=== PATIENT | female | born 1970 | race Two or more races ===

== ENCOUNTER 2020-05-26 08:10 | Outpatient (REF) | payer MEDICAID, SELFPAY ==
--- NOTE | 2020-05-26 08:15 | MM_ITS ---
EXAMINATION: MM BREAST SCREENING DIGITAL BREAST TOMOSYNTHESIS, BILATERAL CLINICAL INFORMATION: Screening. Asymptomatic. The lifetime risk of breast cancer based on the Tyrer-Cuzick Model is 6.6%. COMPARISON: Mammography: 03/26/2019 and studies dating back to 05/21/2013 TECHNIQUE: Digital breast tomosynthesis is performed in both the craniocaudal and mediolateral oblique views along with computer-aided detection (CAD). Synthesized 2D images are generated from the tomosynthesis. Additional cleavage view performed on the left. FINDINGS: There are scattered areas of fibroglandular density (ACR BI-RADS breast composition Category b). There is a stable parenchymal pattern of the left breast with no new abnormal dominant mass or suspicious grouping of microcalcifications. There is a circumscribed density seen within the right breast inferiorly which appears to lie just medial of midline on craniocaudal view. This is in a different location than questioned density worked up in February 2019. Adjacent to this is a small circumscribed density. This lies approximately 6.0 cm from the nipple and appears to be at approximately the 5 o'clock position measuring 8 x 6 mm in size. Spot compression film and ultrasound if necessary is recommended. MM/MM tomosynthesis screening BI IMPRESSION: Question right breast density for further evaluation as described. ASSESSMENT: BI-RADS 0: Incomplete - Need Additional Imaging Evaluation RECOMMENDATION: 1. Additional views of the right breast. 2. Targeted ultrasound if warranted after review of the additional views. 3. Radiology department staff will contact the patient for additional imaging. This patient's information was entered into a reminder system with a target due date for their next mammogram.
== END 2020-05-26 08:11 | disposition home or self-care (01) ==
LOC: HO.MAMMO 08:10
PROVIDERS: PCP Internal Medicine; Visit Provider Internal Medicine
DX: Z12.31 Encounter for screening mammogram for malignant neoplasm of breast (principal)
CPT/HCPCS: 77063; 77067

== ENCOUNTER 2020-06-02 13:41 | Outpatient (REF) | payer MEDICAID, SELFPAY ==
--- NOTE | 2020-06-02 | MM_ITS ---
EXAMINATION: MM DIAGNOSTIC DIGITAL BREAST TOMOSYNTHESIS, RIGHT CLINICAL INFORMATION: Right breast density seen on recent mammogram. COMPARISON: Mammography: 05/26/2020 and studies dating back to 05/21/2013. TECHNIQUE: Digital breast tomosynthesis is performed. 2-D images are generated from the tomosynthesis. The following views are obtained: Spot compression craniocaudal and mediolateral oblique projections. FINDINGS: There are scattered areas of fibroglandular density (ACR BI-RADS breast composition Category b). Additional views show that the density about the inferior medial aspect of the right breast may represent a turn of a vessel or possible adjacent lymph node. Targeted ultrasound evaluation of the right breast demonstrates at the 5 o'clock position, approximately 4 cm from the nipple, what appears to be a mildly complex cyst with increased through sound transmission and no distal sound shadowing containing a dependent calcification. This measures approximately 6 x 3 x 7 mm in size. No suspicious solid mass identified and no shadowing lesion is seen. Recommend 6 month follow up right breast ultrasound. Results are discussed with the patient at time of visit. MM/MM tomosynthesis added views R IMPRESSION: The density about the inferior medial aspect of the right breast appears to correspond to a complex cyst for which 6 month follow up ultrasound is recommended as described. ASSESSMENT: BI-RADS 3: Probably Benign. RECOMMENDATION: Diagnostic right breast ultrasound in 6 months. This patient's information was entered into a reminder system with a target due date for their next mammogram.
--- NOTE | 2020-06-02 | US_ITS ---
EXAMINATION: US DIAGNOSTIC BREAST, RIGHT CLINICAL INFORMATION: Right breast density inferior medial aspect. COMPARISON: Mammography of same day and studies dating back to 05/21/2013. TECHNIQUE: Ultrasound of the breast is performed with real-time mejia scale imaging and color Doppler. FINDINGS: Targeted ultrasound evaluation of the right breast demonstrates at the 5 o'clock position, approximately 4 cm from the nipple, what appears to be a mildly complex cyst with increased through sound transmission and no distal sound shadowing containing a dependent calcification. This measures approximately 6 x 3 x 7 mm in size. No suspicious solid mass identified and no shadowing lesion is seen. Recommend 6 month follow up right breast ultrasound. Results are discussed with the patient at time of visit. US/US breast RT limited IMPRESSION: The density about the inferior medial aspect of the right breast appears to correspond to a complex cyst for which 6 month follow up ultrasound is recommended as described. ASSESSMENT: BI-RADS 3: Probably Benign. RECOMMENDATION: Diagnostic right breast ultrasound in 6 months.
== END 2020-06-02 13:42 | disposition home or self-care (01) ==
LOC: HO.MAMMO 13:41
PROVIDERS: PCP Internal Medicine; Visit Provider Internal Medicine
DX: R92.2 Inconclusive mammogram (principal)
CPT/HCPCS: 76642; 77061; 77065

== ENCOUNTER 2020-12-01 12:50 | Outpatient (REF) | payer MEDICAID, SELFPAY ==
--- NOTE | ~2020-12-01 | MM_ITS ---
EXAMINATION: MM DIAGNOSTIC DIGITAL BREAST TOMOSYNTHESIS, RIGHT US DIAGNOSTIC ULTRASOUND BREAST, RIGHT CLINICAL INFORMATION: Short interval six-month follow-up probable benign complicated cyst lower right breast. COMPARISON: Mammography: 06/02/2020, 05/26/2020 (BI-RADS 0, 03/26/2019, 03/18/2019, 01/09/2018; targeted right breast ultrasound 06/02/2020. TECHNIQUE: Digital breast tomosynthesis is performed in both the craniocaudal and mediolateral oblique views along with computer-aided detection (CAD). Synthesized 2D images are generated from the tomosynthesis. Additional right CC view is provided. Ultrasound right breast is targeted to the lower inner quadrant. Grayscale imaging and color Doppler are performed without and with harmonics. FINDINGS: There are scattered areas of fibroglandular density (ACR BI-RADS breast composition Category b). There is no developing density or interval mass or architectural abnormality. No persistent focal asymmetric density appreciated. No abnormal calcifications. There are punctate densities overlying right axilla corresponding to deodorant artifact on tomography. Ultrasound right breast demonstrates stable small grouped microcysts 5:00 position 4 cm from nipple measuring 7 x 5 x 3 mm. There is no associated color flow. No solid mass or architectural abnormality. Results are provided to the patient at time of visit by the technologist. MM/MM diagnostic mammo unilat RT IMPRESSION: 1. No mammographic evidence of malignancy. 2. Small benign grouped microcysts 5:00 position right breast 7 x 5 x 3 mm. ASSESSMENT: BI-RADS 2: Benign RECOMMENDATION: Routine annual mammography screening, due in 6 months. This patient's information was entered into a reminder system with a target due date for their next mammogram.
== END 2020-12-01 12:51 | disposition home or self-care (01) ==
LOC: HO.MAMMO 12:50
PROVIDERS: Visit Provider Internal Medicine
DX: R92.2 Inconclusive mammogram (principal)
CPT/HCPCS: 76642; 77065

== ENCOUNTER 2021-05-28 09:07 | Outpatient (REF) | payer MEDICAID, SELFPAY ==
--- NOTE | ~2021-05-28 | MM_ITS ---
EXAMINATION: MM SCREENING DIGITAL BREAST TOMOSYNTHESIS, BILATERAL CLINICAL INFORMATION: Screening. Asymptomatic. The lifetime risk of breast cancer based on the Tyrer-Cuzick Model is 6%. COMPARISON: Mammography: 12/01/2020, 06/02/2020, 05/26/2020, 03/26/2019, 03/18/2019; outside exam 01/09/2018 ([facility]); ultrasound right breast 06/02/2020, 12/01/2020 TECHNIQUE: Digital breast tomosynthesis is performed in both the craniocaudal and mediolateral oblique views along with computer-aided detection (CAD). Synthesized 2D images are generated from the tomosynthesis. FINDINGS: There are scattered areas of fibroglandular density (ACR BI-RADS breast composition Category b). Parenchymal pattern is similar to prior studies. There is normal circumscribed nodule consistent with the grouped microcysts 5:00 position right breast under 1 cm. Neither breast shows interval mass or architectural abnormality or abnormal calcifications. The axilla and skin contours are unremarkable. No significant changes. MM/MM tomosynthesis screening BI IMPRESSION: There are no significant changes from prior study. ASSESSMENT: BI-RADS 2: Benign RECOMMENDATION: Routine annual mammography screening. This patient's information was entered into a reminder system with a target due date for their next mammogram.
== END 2021-05-28 09:08 | disposition home or self-care (01) ==
LOC: HO.MAMMO 09:07
PROVIDERS: PCP Internal Medicine; Visit Provider Internal Medicine
DX: Z12.31 Encounter for screening mammogram for malignant neoplasm of breast (principal)
CPT/HCPCS: 77063; 77067

== ENCOUNTER → 2021-07-18 09:44 | Outpatient (BNVA) | payer MEDICAID, SELFPAY | PROVIDERS: PCP Internal Medicine; Referring Provider Internal Medicine; Visit Provider Physician Assistant ==

== ENCOUNTER → 2021-07-25 09:15 | Outpatient (BNVA) | payer MEDICAID, SELFPAY | PROVIDERS: PCP Internal Medicine; Visit Provider Surgery ==

== ENCOUNTER 2021-08-16 09:11 | Outpatient (REF) | payer MEDICAID, SELFPAY ==
--- NOTE | ~2021-08-16 | XR_ITS ---
EXAMINATION: XR CHEST CLINICAL INFORMATION: Morbid obesity COMPARISON: None TECHNIQUE: 2 views of the chest were obtained. FINDINGS: No significant abnormality is noted involving the heart, lungs, mediastinum, bony thorax or soft tissues. XR/XR chest 2V IMPRESSION: No acute disease.
--- NOTE | 2021-08-16 09:26 | ECG_ITS ---
Test Reason : e66.01 Blood Pressure : / mmHG Vent. Rate : 081 BPM Atrial Rate : 081 BPM P-R Int : 140 ms QRS Dur : 084 ms QT Int : 382 ms P-R-T Axes : 038 039 067 degrees QTc Int : 443 ms Normal sinus rhythm Normal ECG No previous ECGs available Referred By: Jose J Clark Electronically Signed By:Farooq Martinez
[2021-08-16 09:47] LABS: MANUAL DIFF FLAG NO
[2021-08-16 09:59] LABS: Basophils Percent Auto 0.3 % (0-2); Eosinophils Absolute Auto 0.1 X10*3/uL (0.0-0.4); Hematocrit 45.4 % (37.0-47.0); Hemoglobin 14.5 g/dl (12.0-16.0); Imm Gran Abs Auto 0.01 X10*3/uL (0.00-0.03); Imm Gran Pct Auto 0.1 % (0.0-0.4); Lymphocytes Absolute Auto 2.5 X10*3/uL (1.2-4.9); Lymphocytes Percent Auto 35.1 % (20-40); Mean Corpuscular HGB Conc 31.9 g/dl (31.0-35.0); Mean Corpuscular Hemoglobin 26.5 pg (27.0-33.0); Mean Platelet Volume 10.6 fL (9.4-12.3); Monocytes Absolute Auto 0.4 X10*3/uL (0.1-1.2); Monocytes Percent Auto 6.2 % (2-11); Neutrophils Absolute Auto 3.9 x10*3/uL (2.0-8.3); Neutrophils Percent Auto 56.3 % (45-73); Platelet Count 383 X10*3/uL (160-400); Red Blood Count 5.47 X10*6/uL (4.20-5.50); Red Cell Distribution Width 13.8 % (11.0-16.0)
[2021-08-16 10:26] LABS: Estimated Average Glucose 128 mg/dL; Hemoglobin A1c % 6.1 %
[2021-08-16 10:29] LABS: Alanine Aminotransferase 23 U/L (0-31); Albumin Level 4.5 g/dL (3.5-5.0); Alkaline Phosphatase 76 U/L (39-117); Anion Gap 12 (12-20); Aspartate Amino Transferase 19 U/L (5-31); Bilirubin Total 0.5 mg/dL (0.0-1.0); Blood Urea Nitrogen 14 mg/dL (9-16); C Reactive Protein 1.34 mg/dL (< or = 0.50); Calcium 9.5 mg/dL (8.4-10.2); Carbon Dioxide 26 mmol/L (22-29); Chloride 108 mmol/L (96-108); Cholesterol 286 mg/dL; Estimated Glomerular Filt Rate > 60; Glucose Random 109 mg/dL (60-115); HDL Cholesterol 44 mg/dL; Iron 116 mcg/dL (30-160); LDL Cholesterol Calculated 216 mg/dl; Percent Iron Saturation 38 % (15-50); Potassium 4.2 mmol/L (3.3-5.1); Sodium 142 mmol/L (135-145); Total Iron Binding Capacity 307 mcg/dL (228-428); Total Protein 7.8 g/dL (6.5-8.0); Triglycerides 132 mg/dL; Unsaturated Iron Binding 191 ug/dL
[2021-08-16 10:56] LABS: Ferritin 94 ng/mL (10-250); Insulin 16 uU/mL (2-29); TSH reflex Free T4 1.48 uIU/mL (0.32-4.0); Vitamin D 25-OH Total 21.7 ng/mL (>30)
[2021-08-16 11:06] LABS: Folate 16.1 ng/mL (> or = 4.0); Vitamin B12 1409 pg/mL (200-900)
[2021-08-16 14:12] LABS: H Pylori Breath Test Positive (Negative)
[2021-08-17 14:46] LABS: Calcium (PTHI) 9.4 mg/dL (8.6-10.2); PTHI 68 pg/mL (14-64)
[2021-08-19 03:22] LABS: Zinc 63 mcg/dL (60-130)
[2021-08-20 08:52] LABS: Vitamin B1 9 nmol/L (8-30)
[2021-08-21 18:16] LABS: Vitamin A 39 mcg/dL (38-98)
== END 2021-08-16 09:12 | disposition home or self-care (01) ==
LOC: HO.LAB 09:11
PROVIDERS: PCP Internal Medicine; Visit Provider Surgery
DX: E66.01 Morbid (severe) obesity due to excess calories (principal); E11.9 Type 2 diabetes mellitus without complications
CPT/HCPCS: 36415; 71046; 80053; 80061; 82306; 82607; 82728; 82746; 83013; 83036; 83525; 83540; 83970; 84425; 84443; 84590; 84630; 85025; 86140; 93005; 99211

== ENCOUNTER → 2021-08-26 07:15 | Outpatient (BNVA) | payer MEDICAID, SELFPAY | PROVIDERS: PCP Internal Medicine; Visit Provider Surgery ==

== ENCOUNTER → 2021-09-09 08:19 | Outpatient (BNVA) | payer MEDICAID, SELFPAY | PROVIDERS: PCP Internal Medicine; Visit Provider Dietitian, Registered | DX: E66.01 Morbid (severe) obesity due to excess calories (principal); E11.9 Type 2 diabetes mellitus without complications | CPT/HCPCS: 97802 ==

== ENCOUNTER 2021-09-20 08:38 | Outpatient (REF) | payer MEDICAID, SELFPAY ==
[2021-09-21 13:56] LABS: H Pylori Breath Test Negative (Negative)
== END 2021-09-20 08:39 | disposition home or self-care (01) ==
LOC: HO.LNP 08:38
PROVIDERS: PCP Internal Medicine; Referring Provider Internal Medicine; Visit Provider Physician Assistant
DX: Z01.818 Encounter for other preprocedural examination (principal)
CPT/HCPCS: 83013; 99211

== ENCOUNTER 2021-09-21 08:44 | Outpatient (REF) | payer MEDICAID, SELFPAY ==
--- NOTE | ~2021-09-21 | FL_ITS ---
EXAMINATION: FL FLUOROSCOPY UPPER GI WITH AIR CLINICAL INFORMATION: Morbid to severe obesity due to excess calories. COMPARISON: None TECHNIQUE: Routine upper GI air-contrast study was performed in the upright and lying positions. FINDINGS: Following oral administration of thick barium and effervescent granules, there is normal propagation of the bolus from the oral cavity, pharynx, esophagus into the stomach without any evidence of obstruction, narrowing or stricture. On placing the patient supine and prone lying, the course, caliber and peristalsis of the stomach, duodenal bulb and sweep are normal. The mucosal pattern of the stomach and duodenum is normal. There is no gastroesophageal reflux or hiatal hernia. FLUOROSCOPY TIME: 1.1 minute DOSE AREA PRODUCT: 33.118 Gy-cm2 FL/FL upper GI w air IMPRESSION: Unremarkable upper GI air-contrast study.
--- NOTE | ~2021-09-21 | US_ITS ---
EXAMINATION: US COMPLETE ABDOMEN WITH LIVER ELASTOGRAPHY CLINICAL INFORMATION: Obesity COMPARISON: None. TECHNIQUE: Real-time imaging of the abdominal viscera. Noninvasive ultrasound liver fibrosis assessment is performed using Alexia ElastPQ point quantification shear wave elastography (2D-SWE) with a C5-2 MHz transducer. Multiple elastography samples are obtained. FINDINGS: PANCREAS: Normal. ABDOMINAL AORTA: The proximal, middle, and distal aortic segments are normal in caliber. INFERIOR VENA CAVA: Visualized portions are normal. LIVER: Liver echotexture is slightly increased. The liver demonstrates normal size and contour. No focal lesion or intrahepatic biliary duct dilatation. The right lobe measures 14 cm in length. The left lobe measures 10.5 cm in length. Portal flow is normal/hepatopedal Shear wave liver elastography median stiffness is 1.2 m/s (reference: normal median stiffness is 1.3 m/s or less). IQR/median stiffness to assess sampling precision is 0.09 (reference: good quality data set is IQR/median stiffness of 0.15 or less). GALLBLADDER: Normal. The gallbladder is physiologically distended without evidence of stones, sludge, polyps, wall thickening or pericholecystic fluid. COMMON BILE DUCT: Normal in caliber measuring 0.2 cm in diameter. RIGHT KIDNEY: There is a 1.4 x 1.2 x 1.3 cm cyst in the lower pole. No hydronephrosis. No renal calculi or focal parenchymal lesions. The kidney measures 11.3 cm in maximum dimension. LEFT KIDNEY: Normal. No hydronephrosis. No renal calculi or focal parenchymal lesions. The kidney measures 12 cm in maximum dimension. SPLEEN: Normal. The spleen measures 10 cm in maximum dimension. FREE FLUID: None. US/US abdomen comp w elastography IMPRESSION: 1. Impression: Slightly echogenic liver probably representing fatty infiltration. Small right renal cyst otherwise unremarkable exam. 2. Liver elastography: Adequate liver sampling. Normal liver stiffness. REFERENCE: Society of Radiologists in Ultrasound Liver Stiffness Thresholds (2020): LIVER STIFFNESS THRESHOLDS: *Liver Stiffness equal or less than 1.3 m/s: High probability of being normal. *Liver Stiffness less than 1.7 m/s: In the absence of other known clinical signs, rules out compensated advanced chronic liver disease. *Liver Stiffness 1.7-2.1 m/s: Suggestive of compensated advanced chronic liver disease but need further test for confirmation. *Liver Stiffness over 2.1 m/s: Rules in compensated advanced chronic liver disease. *Liver Stiffness over 2.4 m/s: Suggestive of clinically significant portal hypertension. QUALITY OF DATA SET: *IQR/Median value equal or less than 0.15 implies a quality data set. *IQR/Median value over 0.15 implies a poor quality data set. SIGNIFICANT CHANGE FROM PRIOR EXAM: Significant change if liver stiffness measurement is 10% or greater from prior exam. OTHER CONSIDERATIONS: The stage of liver fibrosis may be overestimated in the setting of acute hepatitis, liver inflammation, elevated liver function tests, hepatic vascular congestion, obstructive cholestasis, non-fasting state, and infiltrative diseases such as amyloidosis and lymphoma. In some patients with NAFLD, the liver stiffness thresholds for compensated advanced chronic liver disease may be lower. In causes other than viral hepatitis and NAFLD, liver stiffness thresholds are not well established.
== END 2021-09-21 08:45 | disposition home or self-care (01) ==
LOC: HO.US 08:44
PROVIDERS: PCP Internal Medicine; Visit Provider Surgery
DX: E66.01 Morbid (severe) obesity due to excess calories (principal); E11.9 Type 2 diabetes mellitus without complications
CPT/HCPCS: 74246; 76705; 76981

== ENCOUNTER → 2021-09-30 08:15 | Outpatient (BNVA) | payer MEDICAID, SELFPAY | PROVIDERS: PCP Internal Medicine; Visit Provider Surgery ==

== ENCOUNTER → 2021-10-07 08:08 | Outpatient (BNVA) | payer MEDICAID, SELFPAY | PROVIDERS: PCP Internal Medicine; Visit Provider Dietitian, Registered | DX: E66.01 Morbid (severe) obesity due to excess calories (principal) | CPT/HCPCS: 97803 ==

== ENCOUNTER → 2021-10-31 08:15 | Outpatient (BNVA) | payer MEDICAID, SELFPAY | PROVIDERS: PCP Internal Medicine; Visit Provider Surgery | DX: Z13.89 Encounter for screening for other disorder (principal) ==

== ENCOUNTER → 2021-11-08 08:16 | Outpatient (BNVA) | payer MEDICAID, SELFPAY | PROVIDERS: PCP Internal Medicine; Referring Provider Physician Assistant; Visit Provider Dietitian, Registered | DX: Z13.89 Encounter for screening for other disorder (principal) ==

== ENCOUNTER 2022-05-30 08:28 | Outpatient (REF) | payer MEDICAID, SELFPAY ==
--- NOTE | ~2022-05-30 | MM_ITS ---
EXAMINATION: MM SCREENING DIGITAL BREAST TOMOSYNTHESIS, BILATERAL CLINICAL INFORMATION: Screening. Asymptomatic. The lifetime risk of breast cancer based on the Tyrer-Cuzick Model is 6.3%. COMPARISON: Mammography: May 28, 2021 and studies dating back to September 07, 2015 TECHNIQUE: Digital breast tomosynthesis is performed in both the craniocaudal and mediolateral oblique views along with computer-aided detection (CAD). Synthesized 2D images are generated from the tomosynthesis. Additional cleavage view performed. FINDINGS: There are scattered areas of fibroglandular density (ACR BI-RADS breast composition Category b). There are no significant masses, abnormal calcifications, or other abnormalities. Stable circumscribed density seen within the inferior medial aspect of the right breast. MM/MM tomosynthesis screening BI IMPRESSION: No significant changes from prior exam. ASSESSMENT: BI-RADS 1: Negative RECOMMENDATION: Routine annual mammography screening. This patient's information was entered into a reminder system with a target due date for their next mammogram.
== END 2022-05-30 08:29 | disposition home or self-care (01) ==
LOC: HO.MAMMO 08:28
PROVIDERS: PCP Internal Medicine; Visit Provider Internal Medicine
DX: Z12.31 Encounter for screening mammogram for malignant neoplasm of breast (principal)
CPT/HCPCS: 77063; 77067

== ENCOUNTER 2023-06-06 08:08 | Outpatient (REF) | payer MEDICAID, SELFPAY | END 2023-06-06 08:09 | disposition home or self-care (01) | LOC: HO.MAMMO 08:08 | PROVIDERS: PCP Internal Medicine; Visit Provider Internal Medicine | DX: Z12.31 Encounter for screening mammogram for malignant neoplasm of breast (principal) | CPT/HCPCS: 36415; 77063; 77067; 80048; 80061; 80076; 82043; 82570; 83036; 85025 ==

== ENCOUNTER → 2023-06-06 08:45 | Outpatient (BNV) | payer MEDICAID, SELFPAY | PROVIDERS: PCP Internal Medicine; Visit Provider Radiology Diagnostic Radiology | DX: Z12.31 Encounter for screening mammogram for malignant neoplasm of breast (principal) | CPT/HCPCS: 77063; 77067 ==

== ENCOUNTER 2023-06-06 08:56 | Outpatient (REF) | payer MEDICAID, SELFPAY ==
[2023-06-06 11:09] LABS: MANUAL DIFF FLAG NO
[2023-06-06 11:34] LABS: Basophils Percent Auto 0.2 % (0-2); Eosinophils Absolute Auto 0.1 X10*3/uL (0.0-0.4); Eosinophils Percent Auto 1.3 % (0-4); Hematocrit 45.7 % (37.0-47.0); Hemoglobin 14.5 g/dl (12.0-16.0); Imm Gran Abs Auto 0.02 X10*3/uL (0.00-0.03); Imm Gran Pct Auto 0.3 % (0.0-0.4); Lymphocytes Absolute Auto 1.8 X10*3/uL (1.2-4.9); Lymphocytes Percent Auto 30.6 % (20-40); Mean Corpuscular HGB Conc 31.7 g/dl (31.0-35.0); Mean Corpuscular Hemoglobin 26.1 pg (27.0-33.0); Mean Corpuscular Volume 82.3 fL (80.0-98.0); Mean Platelet Volume 11.1 fL (9.4-12.3); Monocytes Absolute Auto 0.5 X10*3/uL (0.1-1.2); Monocytes Percent Auto 7.5 % (2-11); Neutrophils Absolute Auto 3.6 x10*3/uL (2.0-8.3); Neutrophils Percent Auto 60.1 % (45-73); Platelet Count 316 X10*3/uL (160-400); Red Blood Count 5.55 X10*6/uL (4.20-5.50); Red Cell Distribution Width 13.9 % (11.0-16.0)
[2023-06-06 11:42] LABS: Estimated Average Glucose 126 mg/dL
[2023-06-06 11:51] LABS: Alanine Aminotransferase 37 U/L (0-31); Albumin Level 4.2 g/dL (3.5-5.0); Alkaline Phosphatase 69 U/L (39-117); Anion Gap 13 (12-20); Aspartate Amino Transferase 29 U/L (5-31); Bilirubin Direct 0.1 mg/dL (0.0-0.5); Bilirubin Total 0.3 mg/dL (0.0-1.0); Blood Urea Nitrogen 8 mg/dL (9-16); Calcium 8.8 mg/dL (8.4-10.2); Carbon Dioxide 23 mmol/L (22-29); Chloride 107 mmol/L (96-108); Cholesterol 242 mg/dL (<200); Estimated Glomerular Filt Rate > 60; Glucose Random 98 mg/dL (60-115); HDL Cholesterol 52 mg/dL (>40); LDL Cholesterol Calculated 156 mg/dL (<100); Potassium 3.9 mmol/L (3.3-5.1); Sodium 139 mmol/L (135-145); Total Protein 7.5 g/dL (6.5-8.0); Triglycerides 174 mg/dL (<150)
[2023-06-06 12:07] LABS: Creatinine Urine 178.67 mg/dL; Microalbum/Creatinine Ratio Ur 6.1 ug/mg cr (<30)
== END 2023-06-06 08:57 | disposition home or self-care (01) ==
LOC: HO.HHCL 08:56
PROVIDERS: Visit Provider Internal Medicine
DX: E11.9 Type 2 diabetes mellitus without complications (principal)
CPT/HCPCS: 36415; 80048; 80061; 80076; 82043; 82570; 83036; 85025

== ENCOUNTER 2023-07-24 11:33 | Outpatient (REF) | payer MEDICAID, SELFPAY ==
[2023-07-27 23:34] LABS: C. trachomatis RNA TMA NOT DETECTED (NOT DETECTED); N. gonorrhoeae RNA TMA NOT DETECTED (NOT DETECTED)
[2023-07-28 03:14] LABS: HPV mRNA E6/E7 rflx Not Detected (Not Detected)
== END 2023-07-24 11:34 | disposition home or self-care (01) ==
LOC: HO.HHCLNP 11:33
PROVIDERS: Visit Provider Internal Medicine
DX: Z12.4 Encounter for screening for malignant neoplasm of cervix (principal); Z11.51 Encounter for screening for human papillomavirus (HPV)
CPT/HCPCS: 36415; 87491; 87591; 87624; 88142

== ENCOUNTER 2024-06-12 10:16 | Outpatient (REF) | payer MEDICAID, SELFPAY ==
--- NOTE | ~2024-06-12 | MM_ITS ---
EXAMINATION: MM SCREENING DIGITAL BREAST TOMOSYNTHESIS, BILATERAL CLINICAL INFORMATION: Screening. Asymptomatic. COMPARISON: Mammography: Comparison is made with available priors TECHNIQUE: Digital breast mammography with tomosynthesis is performed in both the craniocaudal and mediolateral oblique views along with computer-aided detection (CAD). FINDINGS: There are scattered areas of fibroglandular density (ACR BI-RADS breast composition Category b). There are no significant masses, abnormal calcifications, or other abnormalities. MM/MM tomosynthesis screening BI IMPRESSION: No mammographic evidence of malignancy. ASSESSMENT: BI-RADS BI-RADS 1 - Negative RECOMMENDATION: Routine annual mammography screening. 1 year F/U This examination should not preclude the clinical evaluation of a suspicious palpable abnormality. This patient's information was entered into a reminder system with a target due date for their next mammogram. Electronically signed by: Rupal Cloud DO 06/20/2024 10:45 AM LELAND
== END 2024-06-12 10:17 | disposition home or self-care (01) ==
LOC: HO.MAMMO 10:16
PROVIDERS: PCP Internal Medicine; Visit Provider Internal Medicine
DX: Z12.31 Encounter for screening mammogram for malignant neoplasm of breast (principal)
CPT/HCPCS: 77063; 77067

== ENCOUNTER → 2024-06-12 11:15 | Outpatient (BNV) | payer MEDICAID, SELFPAY | PROVIDERS: PCP Internal Medicine; Visit Provider Internal Medicine | DX: Z12.31 Encounter for screening mammogram for malignant neoplasm of breast (principal) | CPT/HCPCS: 77063; 77067 ==

== ENCOUNTER 2024-07-07 10:08 | Outpatient (REF) | payer MEDICAID, SELFPAY ==
[2024-07-07 12:09] LABS: Alanine Aminotransferase 47 U/L (0-31); Albumin Level 4.2 g/dL (3.5-5.0); Alkaline Phosphatase 91 U/L (39-117); Anion Gap 10 (12-20); Aspartate Amino Transferase 36 U/L (5-31); Bilirubin Total 0.3 mg/dL (0.0-1.0); Blood Urea Nitrogen 12 mg/dL (9-16); Calcium 9.2 mg/dL (8.4-10.2); Carbon Dioxide 26 mmol/L (22-29); Chloride 107 mmol/L (96-108); Cholesterol 259 mg/dL (<200); Estimated Glomerular Filt Rate > 60; Glucose Random 121 mg/dL (60-115); HDL Cholesterol 44 mg/dL (>40); LDL Cholesterol Calculated 174 mg/dL (<100); Potassium 3.9 mmol/L (3.3-5.1); Sodium 139 mmol/L (135-145); Total Protein 7.7 g/dL (6.5-8.0); Triglycerides 206 mg/dL (<150)
[2024-07-07 14:34] LABS: Creatinine Urine 141.45 mg/dL
== END 2024-07-07 10:09 | disposition home or self-care (01) ==
LOC: HO.HHCL 10:08
PROVIDERS: Visit Provider Internal Medicine
DX: E11.9 Type 2 diabetes mellitus without complications (principal)
CPT/HCPCS: 36415; 80053; 80061; 82043; 82570

== ENCOUNTER 2025-06-23 09:46 | Outpatient (REF) | payer OTHER, SELFPAY ==
--- NOTE | ~2025-06-23 | MM_ITS ---
EXAMINATION: MM SCREENING DIGITAL BREAST TOMOSYNTHESIS, BILATERAL CLINICAL INFORMATION: Screening. Asymptomatic. COMPARISON: Comparison made to multiple prior, most recent June 12, 2024, and most remote January 09, 2018. TECHNIQUE: Digital breast tomosynthesis is performed in mediolateral oblique and craniocaudal views along with computer-aided detection (CAD). Synthesized 2D images are generated from the tomosynthesis. FINDINGS: BREAST COMPOSITION: There are scattered areas of fibroglandular density. BILATERAL BREASTS: No significant masses, suspicious calcifications or other abnormalities are seen in either breast. MM/MM tomosynthesis screening BI IMPRESSION: BILATERAL BREASTS: Negative, no mammographic evidence of malignancy. Normal interval follow-up is recommended in 12 months. ASSESSMENT: BI-RADS: Category 1: Negative RECOMMENDATION: Routine annual mammography screening. FOLLOW-UP: 1 year F/U This examination should not preclude the clinical evaluation of a suspicious palpable abnormality. This patient's information was entered into a reminder system with a target due date for their next mammogram. Electronically signed by: Michelle Goncalves MD 06/23/2025 07:37 PM [facility]
--- OUTSIDE RECORDS SUMMARY | 2025-06-23 11:27 | XMS_ITS | Clinical Summary ---
Author Organization [address] [facility] Address [address] [place] [address] Phone Care Team Providers Care Plate Stacker Name Role Phone Darcy Mendoza MD Primary Care Provide r Allergies Active Allergy Reactions Criticality Noted Date Comments Aspirin 08/11/2022 Medications acetaminophen (TYLENOL) 500 mg tablet Take 1 tablet (500 mg total) by mouth every 6 (six) hours if needed. 5 Active atorvastatin (LIPITOR) 10 mg tablet Take 1 tablet (10 mg total) by mouth at bedtime. 5 Active cyclobenzaprine (FLEXERIL) 10 mg tablet Take 1 tablet (10 mg total) by mouth at bedtime. 5 Active diclofenac (VOLTAREN) 1 % topical gel 2 (two) times a day. 5 Active docusate sodium (COLACE) 100 mg capsule Take 1 capsule (100 mg total) by mouth 2 (two) times a day. 5 Active ibuprofen (ADVIL,MOTRIN) 400 mg tablet TOME HERVE-DOS TABLETA POR V A ORAL PROSPER VECES AL D A CUANDO SEA NECESARIO PARA EL DOLOR 5 Active metFORMIN (FORTAMET) 500 mg 24 hr tablet Take 1 tablet (500 mg total) by mouth 2 (two) times a day with meals. 3 Active tirzepatide, weight loss, (Zepbound) 15 mg/0.5 mL injection Inject 0.5 mL (15 mg total) under the skin every 7 (seven) days. Active cholecalciferol (VITAMIN D-3) 50 mcg (2,000 unit) tablet Take 1 tablet (2,000 Units total) by mouth 1 (one) time each day. Active hydroquinone (KETAN) 4 % cream Apply topically 2 (two) times a day. Active ketotifen fumarate (ZADITOR) 0.035 % ophthalmic solution 1 drop 2 (two) times a day. Active polyethylene glycol (Golytely) 236-22.74-6.74 -5.86 gram solution Take 4L by mouth once for one dose. May substitue any PEG. Starting at 2PM the day before your procedure drink 1 8oz glasses at your own pace until you complete half of the gallon. Finish 2nd half of the gallon at 8PM. 4000 mL 5 Active bisacodyL (DULCOLAX) 5 mg EC tablet Take 2 tablets by mouth right before beginning bowel prep. See instructions provided by the office 2 tablet 5 Active Encounters Date Type Department Care Team Description 04/13/2025 2:00 PM EDT Office Visit Bariatric Surgery - [address] [place] [address] Leeann Damon PA Class 3 severe obesity due to excess calories with serious comorbidity and body mass index (BMI) of 45.0 to 49.9 in adult (CMS/HCC V24, CMS/HCC V28) (Primary Dx); Type 2 diabetes mellitus without complication, unspecified whether residential insulin use (CMS/HCC V24, CMS/HCC V28); Colon cancer screening 04/09/2025 Telephone Gastroenterology [address] [place] [address] Merlene Johnson MD 04/08/2025 Telephone Gastroenterology [address] [place] [address] Merlene Johnson MD from Last 3 Months Social History Tobacco Use Types Packs/Day Years Used Date Smoking Tobacco: Never Assessed Comments Unknown Sex and Gender Information Value Date Recorded Sex Assigned at Not on file Legal Sex Female 11:04 AM EDT Gender Identity Not on file Sexual Orientation Not on file Last Filed Vital Signs Vital Sign Reading Time Taken Comments Blood Pressure 113/75 04/13/2025 1:51 PM EDT Pulse 89 04/13/2025 1:51 PM EDT Temperature 36.7 C (98.1 F) 06/18/2024 1:33 PM EST Respiratory Rate - - Oxygen Saturation - - Inhaled Oxygen Concentration - - Weight 112 kg (246 lb 3.2 oz) 04/13/2025 1:51 PM EDT Height 157.5 cm (5' 2 ) 04/13/2025 1:51 PM EDT Body Mass Index 45.03 04/13/2025 1:51 PM EDT Plan of Treatment Upcoming Encounters Date Type Department Care Team (Late st Contact Info) Description 07/06/2025 12:30 PM EST Appointment [facility] [address] [place] [id number] Abdirahman Guerrero DO [address] [facility] [address] [place] [address] Health Maintenance Due Date Last Done Comments Breast Cancer Screening 1971 Colorectal Cancer Screening: Colonoscopy 1971 Diabetes: Annual Foot Exam 11/01/1981 Diabetes: Annual Retina Eye Exam 11/01/1981 Hepatitis B Vaccines (1 of 3 - 19+ 3-dose series) 11/01/1990 Pneumococcal Vaccine: 50+ Years (1 of 2 - PCV) 11/01/1990 RSV Immunization Adult Patients (1 - Risk 50-74 years 1-dose series) 11/01/2021 HIV Screening 02/29/2024 Hepatitis C Screening 02/29/2024 Social Influencers of Health Screening 02/29/2024 Diabetes: Annual Urine Albumin-Creatinine Ratio (uACR) 06/18/2024 Depression Screening 07/30/2024 COVID-19 Vaccine (4 - 2024-2 6 season) 2025 06/28/2021, 12/17/2020, 10/12/2020 Influenza Vaccine (#1) 2025 2, 06/09/2021, 09/15/2020 Diabetes: Annual GFR (Glomerular Filtration Rate) 07/07/2025 07/07/2024 Diabetes: Blood Sugar Contro l Test (HGBA1C) 09/30/2025 04/02/2025, 06/06/2024 Cervical Cancer Screening: P ap Smear 07/25/2026 07/25/2023 Cholesterol Screening (Lipid Panel) 07/07/2029 07/07/2024, 06/06/2023 DTaP,Tdap,and Td Vaccines (2 - Td or Tdap) 06/01/2032 06/01/2022 Zoster Vaccines Completed 10/06/2022, 08/04/2022 HIB Vaccines Aged Out No longer eligi ble based on patient's age to complete this topic HPV Vaccines Aged Out No longer eligi ble based on patient's age to complete this topic Hepatitis A Vaccines Aged Out No long er eligible based on patient's age to complete this topic IPV Vaccines Aged Out No longer eligi ble based on patient's age to complete this topic MMR Vaccines Aged Out No longer eligi ble based on patient's age to complete this topic Meningococcal ACWY Vaccine Aged Out N o longer eligible based on patient's age to complete this topic Meningococcal B Vaccine Aged Out No l onger eligible based on patient's age to complete this topic RSV Immunization Patients Under 20 months Aged Out No longer eligible b ased on patient's age to complete this topic Varicella Vaccines Aged Out No longer eligible based on patient's age to complete this topic Goals Goal Patient Goal Type Associated Problems Recent Progress Patient-Stated? Author Autogenera tatiana Goal Care Plan Autogenerated Problem No SoheilaCorinne Additional Health Concerns Active Problems Noted Date Diagnosed Date Autogenerated Problem 05/20/[address] [place] [address] [place] [address] [employer] Care Teams Plate Stacker Relationship Specialty Start Date End Date Darcy Mendoza MD [address] [phone] PCP - General Internal Medicine 06/18/24
--- OUTSIDE RECORDS SUMMARY | 2025-06-23 11:27 | XMS_ITS | Encounter Summary ---
Author Organization [employer] Address [address] [facility] 7 [place] [address] Care Team Providers Care Natural Gas Engineer Name Role Phone Darcy Mendoza MD Primary Care Provide r Reason for Visit * Reason Onset Date Comments Med Refill 02/23/2025 Encounter Details Date Type Department Care Team ([facility] Contact Info) Description 02/23/2025 Telephone [facility] [address] [place], [place] [phone] Darcy Mendoza MD [address] [place] [address] Med Refill Social History Tobacco Use Types Packs/Day Years Used Date Smoking Tobacco: Never Passive Smoke Exposure: Never Smokeless Tobacco: Never Alcohol Use Standard Drinks/Week Comments Never 0 (1 standard drink = 0.6 oz pur e alcohol) Depression Answer Date Recorded Patient Health Questionnaire-9 Score 0 01/23/2025 Patient Health Questionnaire-9 Score 0 01/23/2025 Last PHQ-9: Questionnaire Data Not on file 0 01/23/2025 Housing Stability Answer Date Recorded What is your housing situation today? I have simon carmichael 01/23/[address] you li ve. Do you have problems with any of the following? None of the above 01/23/2025 Food Insecurity Answer Date Recorded Within the past 12 months, y ou worried that your food would run out before you got money to buy more: Never True 01/23/2025 Within the past 12 months,th e food you bought just didn't last and you didn't have enough money to get more: Never True Transportation Answer Date Recorded In the past 12 months, has l ack of transportation kept you from medical appts, meetings, work or from getting things needed for daily living? No 01/23/2025 Utilities Answer Date Recorded In the past 12 months, has t he electric, gas, oil or water company threatened to shut off services in your home? No 01/23/2025 Depression Answer Date Recorded Patient Health Questionnaire-2 Score 0 01/23/2025 Internet Access Answer Date Recorded Internet Access Q1 Yes 01/23/2025 Internet Access Q2 Not on file 01/23/2025 Comments Unknown Sex and Gender Information Value Date Recorded Sex Assigned at Female 05/29/2022 10:34 AM EDT Legal Sex Female 10:34 AM EDT Gender Identity Female 05/29/2022 10:34 AM EDT Sexual Orientation Choose not to disclose 2021 10:34 AM EDT documented as of this encounter Miscellaneous Notes * Telephone Encounter - Karoline Walker LPN - 02/23/2025 4:06 PM EDT Medication was sent to [facility] #[id number] on 01/21/25 with 1 refill. * Telephone Encounter - Jayme Torres - 02/23/2025 4:03 PM EDT TC from pt requesting medication refill. Medications needing refill : Tirzepatide-Weight Management (Zepbound) 12.5 MG/0.5ML solution auto-injector To be sent to: [facility]/pharmacy #[id number] - [address] documented in this encounter Plan of Treatment Upcoming Encounters Date Type Department Care Team ([facility] st Contact Info) Description 07/09/2025 1:00 PM EST Office Visit [facility] [address] [place] [address] Darcy Mendoza MD [address] [place], [place] [phone] documented as of this encounter Visit Diagnoses Not on filedocumented in this encounter Additional Health Concerns Assessment Noted Time PHQ-9 Depression Total Score: 0 01/24/20 25 1:26 PM EDT documented as of this encounter Care Teams Natural Gas Engineer Relationship Specialty Start Date End Date Darcy Mendoza MD [address] [place] [address] PCP - General Family Medicine 07/16/18 documented as of this encounter
--- OUTSIDE RECORDS SUMMARY | 2025-06-23 11:27 | XMS_ITS | Encounter Summary ---
Author Organization [employer] Address [address] [place] [address] Care Team Providers Care Class C Driver Name Role Phone Darcy Mendoza MD Primary Care Provide r Encounter Details Date Type Department Care Team ([facility] st Contact Info) Description 11/27/2024 Orders Only [facility] [address] [place] [address] ProviderChan MD Social History Tobacco Use Types Packs/Day Years Used Date Smoking Tobacco: Never Passive Smoke Exposure: Never Smokeless Tobacco: Never Alcohol Use Standard Drinks/Week Comments Never 0 (1 standard drink = 0.6 oz pur e alcohol) Depression Answer Date Recorded Patient Health Questionnaire-9 Score 0 08/28/2023 Patient Health Questionnaire-9 Score 0 08/28/2023 Last PHQ-9: Questionnaire Data Not on file 0 08/28/2023 Housing Stability Answer Date Recorded What is your housing situation today? I have simonteodora carmichael 08/28/[address] you li ve. Do you have problems with any of the following? None of the above 08/28/2023 Food Insecurity Answer Date Recorded Within the past 12 months, y ou worried that your food would run out before you got money to buy more: Never True 08/28/2023 Within the past 12 months,th e food you bought just didn't last and you didn't have enough money to get more: Never True Transportation Answer Date Recorded In the past 12 months, has l ack of transportation kept you from medical appts, meetings, work or from getting things needed for daily living? No 08/28/2023 Utilities Answer Date Recorded In the past 12 months, has t he electric, gas, oil or water company threatened to shut off services in your home? No 08/28/2023 Depression Answer Date Recorded Patient Health Questionnaire-2 Score 0 08/28/2023 Comments Unknown Sex and Gender Information Value Date Recorded Sex Assigned at Female 05/29/2022 10:34 AM EDT Legal Sex Female 10:34 AM EDT Gender Identity Female 05/29/2022 10:34 AM EDT Sexual Orientation Choose not to disclose 2021 10:34 AM EDT documented as of this encounter Plan of Treatment Upcoming Encounters Date Type Department Care Team (Late st Contact Info) Description 07/09/2025 1:00 PM EST Office Visit [facility] [address] [place], [place] [phone] Darcy Mendoza MD [address] [place], [place] [phone] documented as of this encounter Procedures Procedure Name Priority Date/Time Associated Diagnosis Comments HM COLONOSCOPY Routine 09/05/2019 4:17 PM EST documented in this encounter Results * Hm Colonoscopy (09/05/2019 4:17 PM EST) Colonoscopy Normal Normal Narrative Jazz Penaloza - 09/05/2019 4:17 PM EST See legacy note from 09/05/2019 us Historical Provider HEALTH MAINTENANCE Edited Result - Final documented in this encounter Visit Diagnoses Not on filedocumented in this encounter Additional Health Concerns Assessment Noted Time PHQ-9 Depression Total Score: 0 08/28/19 24 2:59 PM EST documented as of this encounter Care Teams Class C Driver Relationship Specialty Start Date End Date Darcy Mendoza MD [address] [place], [place] [phone] PCP - General Family Medicine 07/16/18 documented as of this encounter
--- OUTSIDE RECORDS SUMMARY | 2025-06-23 11:27 | XMS_ITS | Clinical Summary ---
Author Organization [employer] Address [address] [facility] [address] [place] [address] Care Team Providers Care Senior Designer/Art Director Name Role Phone Darcy Mendoza MD Primary Care Provide r Allergies Active Allergy Reactions Criticality Noted Date Comments Aspirin 08/11/2022 Medications cholecalciferol (Vitamin D-3) 50 MCG (1999 UT) tablet Take by mouth. 2 Active glucose blood (FREESTYLE LITE) test strip every 12 (twelve) hours. 2 Active hydroquinone 4 % cream Apply topically every 12 (twelve) hours. 1 Active ketotifen (Zaditor) 0.025 % ophthalmic solution Administer 1 drop into affected eye(s) in the morning and 1 drop in the evening. 1 Active zoster vaccine-recombin ant adjuvanted (Shingrix) 50 MCG/0.5ML vaccine Inject 0.5 mL into the shoulder, thigh, or buttocks. 2 Active FreeStyle lancetsIndicatio ns:Type 2 diabetes mellitus without complication, unspecified whether termite helper insulin use USE 1 LANCET BY TO SKIN ROUTE 2 TIMES EVERY DAY 100 each 1 3 Active UltiCare Alcohol Swabs 70 % padsIndications: Type 2 diabetes mellitus without complication, unspecified whether termite helper insulin use APPLY 1 PAD BY TO SKIN ROUTE 2 TIMES EVERY DAY 100 each 3 Active metFORMIN, OSM, (Fortamet) 500 MG 24 hr tabletIndication s:Type 2 diabetes mellitus without complication, without long-term current use of insulin (HCC) Take 1 tablet (500 mg) by mouth with evening meal. Do not crush, chew, or split. 30 tablet 11 3 Active metFORMIN (Glucophage) 500 MG tabletIndication s:Newly diagnosed diabetes (HCC) Take 1 tablet (500 mg) by mouth with breakfast and with evening meal. 60 tablet 11 4 Active Lancets miscIndications: Newly diagnosed diabetes ([facility]) Use to test blood sugar 2 times daily 100 each 4 Active Blood Glucose Monitoring Suppl (FreeStyle Ridge Lite) w/Device kitIndications:N ewly diagnosed diabetes ([facility]) Use to test blood sugar 2 times daily 1 kit 4 Active UltiCare Alcohol Swabs 70 % padsIndications: Newly diagnosed diabetes ([facility]) USE TO TEST BLOOD SUGAR 2 TIMES DAILY 100 each 5 4 Active Tirzepatide-Weig ht Management (Zepbound) 10 MG/0.5ML solution auto-injectorInd ications:Class 3 severe obesity due to excess calories with serious comorbidity and body mass index (BMI) of 50.0 to 59.9 in adult ([facility]) Inject 0.5 mL (10 mg) under the skin 1 (one) time per week. 2 mL 5 Active cyclobenzaprine (Flexeril) 10 MG tablet Take 1 tablet (10 mg) by mouth at bedtime for 10 days. 10 tablet 5 Active Diclofenac Sodium 1 % gel APPLY 1 INCH TOPICALLY IF NEEDED IN THE MORNING AND AT BEDTIME FOR PAIN 100 g 5 Active Acetaminophen Extra Strength 500 MG tablet TAKE 1 TABLET (500 MG) BY MOUTH EVERY 6 (SIX) HOURS IF NEEDED FOR MILD PAIN. 120 tablet 5 Active Tirzepatide-Weig ht Management (Zepbound) 15 MG/0.5ML solutionIndicati ons:Class 3 severe obesity due to excess calories with serious comorbidity in adult ([facility]) Inject 15 mg under the skin 1 (one) time per week. 2 mL 3 5 Active atorvastatin (Lipitor) 10 MG tabletIndication s:Dyslipidemia Take 1 tablet (10 mg) by mouth Once per day. 30 tablet 11 5 026 Active docusate sodium (Colace) 100 MG capsuleIndicatio ns:Other constipation TAKE 1 CAPSULE BY MOUTH IN THE MORNING AND AT BEDTIME NEEDED FOR CONSTIPATION 180 capsule 5 Active ibuprofen 400 MG tablet TOME HERVE-DOS TABLETA POR VIA ORAL PROSPER VECES AL AARON CUANDO SEA NECESARIO PARA EL DOLOR 90 tablet 5 Active Active Problems Problem Noted Date Diagnosed Date Chronic left shoulder pain 04/02/2025 Assessment & Plan (04/02/2025 6:51 PM EDT): I will order an x-ray of the shoulder and contact the patient with results and plan Colon cancer screening 04/02/2025 Dyslipidemia 04/02/2025 Assessment & Plan (04/02/2025 6:49 PM EDT): Extensive counseling about healthy diet and exercise done today Her ASCVD 10-year risk score is 5.8, I decided to start her on atorvastatin 10 mg daily, monitor her LFTs in 3 months Tendinosis of left rotator cuff 02/26/2025 Assessment & Plan (02/26/2025 2:54 PM EDT): Advised to apply heat to affected area and diclofenac gel twice daily x 1 to 2 weeks Continue ibuprofen up to 800 mg 2-3 times per day as needed (history of ASA allergy but currently tolerates ibuprofen well) + Tylenol and Flexeril nightly x 1 to 2 weeks We discussed about stretching exercises for her shoulders, she can call back if symptoms do not improve within 3 weeks, may need referral to PT Other constipation 09/08/2024 Assessment & Plan (09/08/2024 4:43 PM EST): I advised to drink more water and include fiber in her diet I prescribed for patient Colace and MiraLAX Bilateral foot pain 06/06/2024 Elevated blood pressure reading 06/06/2024 Assessment & Plan (06/06/2024 11:31 AM EST): I advise low Na diet and weight reduction RTC 5 weeks Type 2 diabetes mellitus wit hout complication, without long-term current use of insulin 06/06/2024 Assessment & Plan (04/02/2025 6:51 PM EDT): Diabetes is: controlled - Lab Results Component Value Date HGBA1C 5.8 (A) 04/02/2025 HGBA1C 6.3 (A) 06/06/2024 HGBA1C 6.5 (A) 11/27/2023 - Lab Results Component Value Date MICROALBUR 10.0 07/07/2024 CREATININE 0.58 07/07/2024 -Changes: Continue with same interventions and medications, A1c has been improving since Zepbound was started - Diabetic eye exam: Up-to-date, as per patient she recently had an appointment with eye care - Diabetic foot exam: Pending - Continue lifestyle modifications - Continue current medications - Follow up: 3 months Assessment & Plan (06/06/2024 11:34 AM EST): Diabetes is: controlled - Lab Results Component Value Date HGBA1C 6.3 (A) 06/06/2024 HGBA1C 6.5 (A) 11/27/2023 HGBA1C 6.0 06/06/2023 - Lab Results Component Value Date MICROALBUR 11.0 06/06/2023 CREATININE 0.64 06/06/2023 -Changes: patient taking intermittently metformin due to side effects, I will start her on zepbaound today - Diabetic eye exam:up to date - Diabetic foot exam:referral today - Continue lifestyle modifications - Continue current medications - Follow up: 3 months Newly diagnosed diabetes 11/27/2023 Assessment & Plan (11/27/2023 10:33 AM EDT): Diabetes is: controlled - Lab Results Component Value Date HGBA1C 6.5 (A) 11/27/2023 HGBA1C 6.0 06/06/2023 HGBA1C 6.0 (H) 01/12/2021 - Lab Results Component Value Date MICROALBUR 11.0 06/06/2023 CREATININE 0.64 06/06/2023 Patient educated I started her again on metformin 500mg BID, diabetes supplies prescribed - Diabetic eye exam:has upcoming appointment - Diabetic foot exam:pending - Follow up: 3 months Papanicolaou smear for cervical cancer screening 07/24/2023 Class 3 severe obesity due t o excess calories with serious comorbidity in adult 07/24/2023 Assessment & Plan (04/02/2025 6:49 PM EDT): Extensive counseling about healthy diet and exercise done today I will go up on her Zepbound dose to 15 mg weekly, plan is to continue to monitor for medication side effects and weight monitoring Assessment & Plan (09/08/2024 4:44 PM EST): Extensive counseling about diet and exercise done today I went up on her step down to 7.5 mg weekly Assessment & Plan (06/06/2024 11:32 AM EST): I will start patient on zepbound, patient will benefit form weigh loss and diabetes control lower morbidity Assessment & Plan (11/27/2023 10:32 AM EDT): Today extensive discussion was done about life style modifications I advise healthy diet (low calorie) and cardiovascular exercise I will refer her to weight management, she ask to be refer to [facility] (it is near her home) Assessment & Plan (08/28/2023 3:58 PM EST): Today extensive discussion was done about life style modifications I advise healthy diet (low calorie) and cardiovascular exercise C/w phentermine 15mg daily Assessment & Plan (07/24/2023 10:10 AM EST): Today extensive discussion was done about life style modifications I advise healthy diet (low calorie) and cardiovascular exercise I will try topiromate/phenteremine, side effects reviewed with patient RTC 6 weeks Skin tag 05/21/2023 05/21/2023 Rash 05/21/2023 05/21/2023 Resolved Problems Problem Noted Date Diagnosed Date Resolved Date Prediabetes 08/28/2023 11/27/2023 Assessment & Plan (08/28/2023 3:58 PM EST): C/w metformin and diet Type 2 diabetes mellitus without complication 05/21/2005/21/2023 08/28/2023 Assessment & Plan (07/24/2023 10:09 AM EST): - Lab Results Component Value Date HGBA1C 6.0 06/06/2023 HGBA1C 6.0 (H) 01/12/2021 HGBA1C 6.4 (H) 05/26/2020 - Lab Results Component Value Date MICROALBUR 11.0 06/06/2023 CREATININE 0.64 06/06/2023 - Diabetic eye exam:up to date - Diabetic foot exam:pending - Continue lifestyle modifications -I will start patient on metformin Assessment & Plan (05/21/2023 11:15 AM EDT): Lab Results Component Value Date HGBA1C 6.0 (H) 01/12/2021 HGBA1C 6.4 (H) 05/26/2020 - Lab Results Component Value Date MICROALBUR 0.4 01/12/2021 CREATININE 0.75 08/16/2021 CREATININE 0.75 08/16/2021 - Diabetic eye exam: up to date - Diabetic foot exam:pending - Continue lifestyle modifications Encounters Date Type Department Care Team Description 05/25/[address] [facility] [address] [place] [phone] Darcy Mendoza MD Prior Auth Prescription; Prior Authorization (PA Request: ) 04/28/[address] [facility] [address] [place] [phone] Darcy Mendoza MD dec recall 04/13/[address] [facility] [address] [place] [phone] Alicia Paige MD 04/07/[address] [facility] [address] [place] [phone] Darcy Mendoza MD Prior Authorization ( PA: Bartolome) 04/07/[address] [facility] [address] [place] [phone] Darcy Mendoza MD Other constipation 04/02/2025 1:00 PM EDT Office Visit [facility] [address] [place] [phone] Darcy Mendoza MD Type 2 diabetes mellitus without complication, without long-term current use of insulin ([facility]); Class 3 severe obesity due to excess calories with serious comorbidity in adult; Chronic left shoulder pain; Colon cancer screening; Dyslipidemia 04/02/2025 Travel 04/01/[address] [facility] [address] [place] [phone] Darcy Mendoza MD Chart Prep 03/25/[address] [facility] [address] [place], [place] [phone] Alicia Paige MD from Last 3 Months Immunizations Immunization Administration Dates Next Due Influenza injectable quadriv alent preservative free 06/01/2022,06/09/2021,09/15/2020 Moderna Covid-19 Vaccine 12+ 06/28/2021,12/18/19 21,10/12/2020 Tdap 06/01/2022 Zoster, Recombinant 10/06/2022,08/04/2022 Family History Medical History Relation Name Comments Colon cancer Other Relation Name Status Comments Other Social History Tobacco Use Types Packs/Day Years Used Date Smoking Tobacco: Never Passive Smoke Exposure: Never Smokeless Tobacco: Never Tobacco Cessation:Counseling Given: Not Answered Alcohol Use Standard Drinks/Week Comments Never 0 [...] not to disclose 2021 10:34 AM EDT Last Filed Vital Signs Vital Sign Reading Time Taken Comments Blood Pressure 130/80 04/02/2025 1:08 PM EDT Pulse 90 04/02/2025 1:08 PM EDT Temperature 36.3 C (97.4 F) 04/02/2025 1:08 PM EDT Respiratory Rate 20 04/02/2025 1:08 PM EDT Oxygen Saturation 97% 06/06/2024 10:51 AM EST Inhaled Oxygen Concentration - - Weight 112 kg (247 lb) 04/02/2025 1:08 PM EDT Height 160 cm (5' 3 ) 04/02/2025 1:08 PM EDT Body Mass Index 43.75 04/02/2025 1:08 PM EDT Plan of Treatment Upcoming Encounters Date Type Department Care Team (Late st Contact Info) Description 07/09/2025 1:00 PM EST Office Visit [facility] [address] [place] [address] Darcy Mendoza MD [address] [place] [phone] Health Maintenance Due Date Last Done Comments CT Colonography 1970 FIT DNA/Cologuard 1970 FIT 1970 FOBT 1970 HIV Screening 1970 Sigmoidoscopy 1970 Diabetes: Foot Exam 11/01/1981 Hepatitis C Screening 11/01/1989 Hepatitis B Vaccines (1 of 3 - 19+ 3-dose series) 11/01/1990 Pneumococcal Vaccine: 50+ Years (1 of 2 - PCV) 11/01/1990 RSV Patients and Patients Aged 60 years or older (1 - Risk 50-74 years 1-dose series) 11/01/2021 Eye Exam 08/11/2024 08/11/2022, 07/30, 08/11/2022, Additional history exists Colonoscopy 09/05/2024 09/05/2019 Colorectal Cancer Screening 09/05/2024 COVID-19 Vaccine ( season) 2025 06/28/2021, 12/17/2020, 10/12/2020 Influenza Vaccine (#1) 2025 , 06/09/2021, 09/15/2020 Mammogram 06/12/2025 06/12/2024, 02/2023, 05/30/2022, Additional history exists Diabetes: Urine Protein Screening 07/07/2025 07/07/2024, 07/07/2024, 06/06/2023, Additional history exists Lipid Panel 07/07/2025 07/07/2024, 02/2023, 01/12/2021, Additional history exists Diabetes: Hemoglobin A1C 09/30/2025 025, 06/06/2024, 11/27/2023, Additional history exists Alcohol/Substance Use Screening 01/23/2026 01/23/2025 Depression Screening 01/23/2026 01/23/2025, 01/24/20 25 Disability Screening 01/23/2026 01/23/2025 SDOH Screening 01/23/2026 01/23/2025 Tobacco Screening 02/26/2026 02/26/2025 HPV/Cotest 07/24/2028 07/24/2023, 04/17/2019 Cervical Cancer Screening 07/25/2028 Pap Smear 07/25/2028 07/25/2023 DTaP/Tdap/Td Vaccines (2 - Td or Tdap) 06/01/2032 [...] patient's age to complete this topic Meningococcal Vaccine Aged Out No clarissa rena eligible based on patient's age to complete this topic RSV under 20 months Aged Out No longe r eligible based on patient's age to complete this topic Rotavirus Vaccines Aged Out No longer eligible based on patient's age to complete this topic Procedures Procedure Name Priority Date/Time Associated Diagnosis Comments POCT GLYCATED HEMOGLOBIN, TOTAL Routine 04/02/2025 1:18 PM EDT Type 2 diabetes mellitus without complication, without long-term current use of insulin ([facility]/HCC) POCT GLUCOSE Routine 04/02/2025 1:10 PM EDT Type 2 diabetes mellitus without complication, without long-term current use of insulin ([facility]) ALBUMIN, RANDOM URINE W/CREATININE Routine 07/07/2024 10:11 AM EST Type 2 diabetes mellitus without complication, without long-term current use of insulin ([facility]) LIPID PANEL, STANDARD Routine 07/07/2024 10:11 AM EST Type 2 diabetes mellitus without complication, without long-term current use of insulin (CMS/[facility]) BI MAMMOGRAM SCREENING TOMOSYNTHESIS BILATERAL Routine 06/12/2024 10:30 AM EST PAP SMEAR Routine 07/25/2023 9:30 AM EST HPV MRNA E6/E7 REFLEX TO HPV 16, 18/45 Routine 07/24/2023 9:30 AM EST HM COLONOSCOPY Routine 09/05/2019 4:17 PM EST from Last 3 Months or Most Recently Relevant to Health Maintenance Results * (ABNORMAL) POCT Hgb A1c (04/02/2025 1:18 PM EDT) Hemoglobin A1C 5.8(A) 4.0 - 5.7 % QC Media Lot # [id number] Lot# Expiration Date Blood 04/02/2025 1:18 PM EDT Darcy Inman MD POINT OF CARE TEST EN TER/EDIT ORDERABLES Final Result * POCT Glucose (04/02/2025 1:10 PM EDT) Glucose Blood, POC 123 60 - 200 mg/dL QC Media Lot # [id number] Lot# Expiration Date Blood Capillary blood specimen / Unknown 04/02/2025 1:10 PM EDT Darcy Inman MD POINT OF CARE TEST EN TER/EDIT ORDERABLES Final Result * Albumin, Random Urine W/Creatinine (07/07/2024 10:11 AM EST) Creatinine, Urine 141.45 mg/dL [facility] Microalbumin Urine 10.0 mg/L [facility] Microalbum Creatinine Ratio Ur 7.0 <30 ug/mg cr [facility] Comment:Albumin/Creatinine R atio Reference Ranges: Normal: < 30 ug/mg creatinine Microalbuminuria: 30 - 300 ug/mg creatinineClinical Albuminuria: > 300 ug/mg creatinine Urine (Urine, Random) 07/07/2024 10:11 AM EST 07/07/2024 11:21 AM EST us Darcy Inman MD LAB URINE ORDERABLES Final Result [facility] [address] [place] [phone] * (ABNORMAL) Lipid Panel, Standard (07/07/2024 10:11 AM EST) Triglycerides 206(H) <150 mg/dL [facility] Comment:Desirable Triglyceri de: less than 150 mg/dLBorderline High Triglyceride 150-199 mg/dLHigh Triglyceride: 200-499 mg/dLVery High Triglyceride: greater than or equal to 5OO mg/dL Cholesterol 259(H) <200 mg/dL [facility] Comment:Desirable Cholestero l: less than 200 mg/dLBorderline High Cholesterol: 200-239 mg/dLHigh Cholesterol: greater than 239 mg/dL LDL Cholesterol Calculated 174(H) <100 mg/dL [facility] Comment:Desirable LDL: less than 100 mg/dLNear Optimal/Above Optimal LDL: 110- 129 mg/dLBorderline High LDL: 130-159 mg/dLHigh LDL: 160-189 mg/dLVery High LDL: greater than or equal to 190 mg/dL HDL Cholesterol 44 >40 mg/dL [facility] Comment:Desirable HDL: great er than 40 mg/dL Note: This HDL assay may give artificially low results in patients with liver disease. Blood Venous blood specimen / Unknown 07/07/2024 10:11 AM EST 07/07/2024 11:40 AM EST us Darcy Inman MD LAB BLOOD ORDERABLES Final Result Performing Organization Address City/State/[facility] Co de Phone Number [facility] [address] [place] [phone] * BI Mammogram Screening Tomosynthesis Bilateral (06/12/2024 10:30 AM EST) Anatomical Region Laterality Modality Breast Bilateral Mammography 06/12/2024 10:3 0 AM EST Narrative 06/20/2024 10:48 AM EST [facility] [address] [place] [address] Mammography Report Signed Patient: May Mock MR#: [id number] : 1970 Acct:[id number] Age/Sex: 53 / F ADM Date: 06/12/24 Loc: HO.MAMMO Attending Dr: Darcy Inman MD Ordering Physician: Darcy Mendoza MD Results: 1Negative Date of Service: 06/12/24 Follow Up: 1 Year From Orig inal Mammogram Procedure(s): MM tomosynthesis screening BI Accession Number(s): [id number] cc: Darcy Mendoza MD EXAMINATION: MM SCREENING DIGITAL BREAST TOMOSYNTHESIS, BILATERAL CLINICAL INFORMATION: Screening. Asymptomatic. COMPARISON: Mammography: Comparison is made with available priors TECHNIQUE: Digital breast mammography with tomosynthesis is performed in both the craniocaudal and mediolateral oblique views along with computer-aided detection (CAD). FINDINGS: There are scattered areas of fibroglandular density (ACR BI-RADS breast composition Category b). There are no significant masses, abnormal calcifications, or other abnormalities. MM/MM tomosynthesis screening BI IMPRESSION: No mammographic evidence of malignancy. ASSESSMENT: BI-RADS BI-RADS 1 - Negative RECOMMENDATION: Routine annual mammography screening. 1 year F/U This examination should not preclude the clinical evaluation of a suspicious palpable abnormality. This patient's information was entered into a reminder system with a target due date for their next mammogram. Electronically signed by: Rupal Cloud DO 06/20/2024 10:45 AM EST Dictated By: Rupal Cloud DO Signed By: <Electronically signed by Rupal Cloud DO in OV> 06/20/24 1045 DD/ 1030 TD/TT: 06/12/24 1040 Night Cleaner: Procedure Note Donotuseinterpreter, Image - 06/20/2024 [facility] [address] [place] [address] Dr. Hahn, ERNESTINA [address] Mammography Report Signed Patient: Louann Mock#: [id number] : 1970Acct:[id number] Age/Sex: 53 / FADM Date: 06/12/24 Loc: HO.MAMMO Attending Dr: Darcy Inman MD Ordering Physician: Darcy Mendoza MDResults: 1Negative Date of Service: 06/12/24Follow Up: 1 Year From Orig inal Mammogram Procedure(s): MM tomosynthesis screening BI Accession Number(s): [id number] cc: Darcy Mendoza MD EXAMINATION: MM SCREENING DIGITAL BREAST TOMOSYNTHESIS, BILATERAL CLINICAL INFORMATION: Screening. Asymptomatic. COMPARISON: Mammography: Comparison is made with available priors TECHNIQUE: Digital breast mammography with tomosynthesis is performed in both the craniocaudal and mediolateral oblique views along with computer-aided detection (CAD). FINDINGS: There are scattered areas of fibroglandular density (ACR BI-RADS breast composition Category b). There are no significant masses, abnormal calcifications, or other abnormalities. MM/MM tomosynthesis screening BI IMPRESSION: No mammographic evidence of malignancy. ASSESSMENT: BI-RADS BI-RADS 1 - Negative RECOMMENDATION: Routine annual mammography screening. 1 year F/U This examination should not preclude the clinical evaluation of a suspicious palpable abnormality. This patient's information was entered into a reminder system with a target due date for their next mammogram. Electronically signed by: Rupal Cloud DO 06/20/2024 10:45 AM EST Dictated By: Rupal Cloud DO Signed By: <Electronically signed by Rupal Cloud DO in OV> 06/20/24 1045 DD/ 1030 TD/TT: 06/12/24 1040 Night Cleaner: us Darcy Inman MD IMG BI PROCEDURES Fin al Result * Pap Smear (07/25/2023 9:30 AM EST) 07/25/2023 9:30 AM EST 07/26/2023 8:45 AM EST [facility] - 07/31/2023 1:27 PM EST ----- ------- Name: May Mock Age/Sex: 52/F : 1970 Unit#: [id number] Attend Dr: Darcy Mendoza MD Re07/24/23 Status: DEP [facility]ch[facility] ----- ------- SPEC : [id number] RECD: 07/26/23 STATUS: TOM BRASWELL NUM: [id number] FARZANA: 07/25/[address] [facility] [address]: Darcy Mendoza MD ENTERED: 07/26/23 SP TYPE: Pap Smr OTHR DR: ORDERED: Pap Smear Interpretation Satisfactory for evaluation. Negative for intraepithelial lesion or malignancy. HPV mRNA E6/E7: NOT DETECTED This assay detects E6/E7 viral messenger RNA (mRNA) from 14 high-risk HPV types (16, 18, 31, 33, 35, 39, 45, 51, 52, 56, 58, 59, 66, 68) HPV testing performed by [facility], [place], [place]. See reference laboratory portion of the EMR for entire report. Clinical Information LMP: Unknown date Previous PAP test: Unknown date/findings Material Received ThinPrep-Vaginal/Cervical ----- ------- Signed (signature on file) TEQUILA Price (ASC) 07/31/23 1327 ----- ------- END OF REPORT Darcy Inman MD LAB CYTOLOGY ORDERABL ES Final Result Performing Organization Address [facility] de Phone Number [facility] [address] [place] [address] [phone] * HPV mRNA E6/E7 w/Reflex to HPV Genotypes 16, 18/45 (07/24/2023 9:30 AM EST) HPV nRNA E6/E7 Not Detected Not Detected [facility] Comment:Methodology: Transcr iption-Mediated AmplificationThis assay detects E6/E7 viral messenger RNA (mRNA) from 14high-risk HPV types (16,18,31,33,35,39,45,51,52,56,58,59,66,68).Cervical sources are required for HPV testing.If a vaginal source from a patient who has had atotal hysterectomy with removal of cervix wassubmitted, please contact the testing laboratoryfor alternative testing options.For additional information, please refer tohttp://education.Between Digital/faq/DKQ006q0(This link if provided for information/educational purposes only.)THIS TEST WAS PERFORMED AT:[facility] [place] [phone] HUNTER MD HPV mRNA E6/E7 [facility] HPV 16 RNA [facility] HPV 18/45 RNA [facility] 07/24/2023 9:30 AM EST 07/26/2023 8:45 AM EST Darcy Inman MD LAB CYTOLOGY ORDERABL ES Final Result Performing Organization Address [facility] Co de Phone Number [facility] [address] [place] [phone] * Hm Colonoscopy (09/05/2019 4:17 PM EST) Colonoscopy Normal Normal Narrative Jazz Penaloza - 09/05/2019 4:17 PM EST See legacy note from 09/05/2019 us Historical Provider HEALTH MAINTENANCE Edited Result - Final from Last 3 Months or Most Recently Relevant to Health Maintenance Insurance [facility] C3 Care Teams Senior Designer/Art Director Relationship Specialty Start Date End Date Darcy Mendoza MD [address] [place] [phone] PCP - General Family Medicine 07/16/18
--- OUTSIDE RECORDS SUMMARY | 2025-06-23 11:27 | XMS_ITS | Encounter Summary ---
Author Organization [employer] Address [address] [facility] 7 [place] [address] Care Team Providers Care Employee Benefits Director Name Role Phone Darcy Mendoza MD Primary Care Provide r Reason for Visit * Reason Onset Date Comments Med Refill 10/03/2024 Encounter Details Date Type Department Care Team ([facility] st Contact Info) Description 10/03/2024 Refill [facility] [address] [place], [place] [phone] Darcy Mendoza MD [address] [place] [phone] Class 3 severe obesity due to excess calories with serious comorbidity and body mass index (BMI) of 50.0 to 59.9 in adult (CMS/HCC) Social History Tobacco Use Types Packs/Day Years [...] housing situation today? I have simon carmichael 08/28/[address] [...] encounter Miscellaneous Notes * Telephone Encounter - Darcy Inman MD - 10/03/2024 11:05 AM EST Next dose prescribed * Telephone Encounter - Karoline Walker LPN - 10/03/2024 8:34 AM EST Is patient moving to next dose? Last seen 09/08/24. * Telephone Encounter - Yadira Hinson - 10/03/2024 8:27 AM EST TC from pt requesting medication refill. Medications needing refill : Tirzepatide-Weight Management (Zepbound) 7.5 MG/0.5ML solution auto-injector To be sent to: [facility]/pharmacy #[id number] - [place], [place] - [address] [place] [address] documented in this encounter Plan of Treatment Upcoming Encounters Date Type Department Care Team ([facility] st Contact Info) Description 07/09/2025 1:00 PM EST Office Visit [facility] [address] [place] [address] Darcy Mendoza MD [address] [place] [address] documented as of this encounter Visit Diagnoses Diagnosis Class 3 severe obesity due to excess calories with serious comorbidity and body mass index (BMI) of 50.0 to 59.9 in adult (HCC) documented in this encounter Additional Health Concerns Assessment Noted Time PHQ-9 Depression Total Score: 0 08/28/19 24 2:59 PM EST documented as of this encounter Care Teams Employee Benefits Director Relationship Specialty Start Date End Date Darcy Mendoza MD [address] [place] [id number] PCP - General Family Medicine 07/16/18 documented as of this encounter
--- OUTSIDE RECORDS SUMMARY | 2025-06-23 11:27 | XMS_ITS | Encounter Summary ---
Author Organization [employer] Address [address] [facility] 7 [place] [address] Care Team Providers Care Traveling Passenger Agent Name Role Phone Darcy Mendoza MD Primary Care Provide r Reason for Visit * Reason Onset Date Comments Med Refill 12/25/2024 Encounter Details Date Type Department Care Team ([facility] Contact Info) Description 12/25/2024 Telephone [facility] [address] [place], [place] [phone] Darcy Mendoza MD [address] [place] [address] Med Refill Social History Tobacco Use Types [...] Miscellaneous Notes * Telephone Encounter - Karoline Walkre LPN - 12/25/2024 1:18 PM EDT Medication was sent to [facility] #[id number] on 11/28/24 with 1 refill. * Telephone Encounter - Benji Espinosa - 12/25/2024 12:27 PM EDT TC from pt requesting medication refill. Medications needing refill: Tirzepatide-Weight Management (Zepbound) 12.5 MG/0.5ML solution auto-injector To be sent to: [facility]/pharmacy #[id number] documented in this encounter Plan of Treatment Upcoming Encounters Date Type Department Care Team (Late st Contact Info) Description 07/09/2025 1:00 PM EST Office Visit [facility] [address] [place], [place] [phone] Darcy Mendoza MD [address] [place] [address] documented as of this encounter Visit Diagnoses Not on filedocumented in this encounter Additional Health Concerns Assessment Noted Time PHQ-9 Depression Total Score: 0 08/28/19 24 2:59 PM EST documented as of this encounter Care Teams Traveling Passenger Agent Relationship Specialty Start Date End Date Darcy Mendoza MD [address] [place] [id number] PCP - General Family Medicine 07/16/18 documented as of this encounter
== END 2025-06-23 09:47 | disposition home or self-care (01) ==
LOC: HO.MAMMO 09:46
PROVIDERS: PCP Internal Medicine; Visit Provider Internal Medicine
DX: Z12.31 Encounter for screening mammogram for malignant neoplasm of breast (principal)
CPT/HCPCS: 77063; 77067

== ENCOUNTER → 2025-06-23 10:30 | Outpatient (BNV) | payer OTHER, SELFPAY | PROVIDERS: PCP Internal Medicine; Visit Provider Radiology Body Imaging | DX: Z12.31 Encounter for screening mammogram for malignant neoplasm of breast (principal) | CPT/HCPCS: 77063; 77067 ==